=== PATIENT | male | born 1995 | race Two or more races ===

== ENCOUNTER 2019-07-18 17:02 | Emergency (ER) | payer OTHER ==
[2019-07-18 17:11] VITALS: BP 172/88
[2019-07-18] MEDS ORDERED: IBUPROFEN 800 MG TABLET PO STA (17:17)
--- NOTE | 2019-07-18 17:19 | ED Physician Documentation ---
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 He is right-handed. He was carrying a tire yesterday and felt his wrist pop, it has been painful ever since especially on the ulnar side.) Review of Systems Constitutional: denies: Fever, Chills Cardiac: reports: Reviewed and negative Respiratory: reports: Reviewed and negative PD PAST MEDICAL HISTORY - Past Medical History Past Medical History: No - Past Surgical History Past Surgical History: No - Present Medications Home Medications: Ambulatory Orders Medication Instructions Recorded Confirmed Ibuprofen [Motrin] 800 mg PO Q8H PRN #20 tablet 07/18/19 - Allergies Allergies/Adverse Reactions: Allergies Allergy/AdvReac Type Severity Reaction Status Date / Time No Known Drug Allergies Allergy Verified 07/18/19 17:08 - Social History Does the pt smoke?: Yes Smoking Status: Current every day smoker Does the pt drink ETOH?: Yes Does the pt have substance abuse?: No - Immunizations Immunizations are current?: Yes PD ED PE NORMAL - Vitals Vital signs reviewed: Yes - General General: Alert and oriented X 3, No acute distress - Extremities Extremities: Other (Mild TTP ulnar side of R wrist. Pain with i nversion/eversion, less so flex/ect.) - Neuro Neuro: Alert and oriented X 3, Normal speech Results - Vitals Vitals: Vital Signs - 24 hr 07/18/19 17:08 Temperature 36.5 C Heart Rate 96 Respiratory 15 Rate Blood Pressure 172/88 H O2 Saturation 100 Oxygen O2 Source Room air - Rads (name of study) 4 view x-ray of the right wrist Radiology: EMP read contemporaneously (Normal) Departure - Departure Disposition: 01 Home, Self Care Clinical Impression: Right wrist sprain Condition: Good Record reviewed to determine appropriate education?: Yes Instructions: ED Sprain Wrist Prescriptions: Ibuprofen [Motrin] 800 mg PO Q8H PRN #20 tablet PRN Reason: PAIN &/OR FEVER Comments: [place] treatment. Return for new or worsening symptoms. Forms: Activity restrictions
--- NOTE | 2019-07-18 18:34 | XRAY Report ---
Reason: wrist injury Procedure Date: 07/18/2019 Accession Number: [id number] / [id number] Procedure: XR - Wrist 4 View RT CPT Code: Final Report FULL RESULT: EXAM: RIGHT WRIST RADIOGRAPHY EXAM DATE: 07/18/2019 06:24 PM. CLINICAL HISTORY: Wrist injury lifting tire. COMPARISON: None. TECHNIQUE: 4 views. FINDINGS: Bones: Normal. No fractures or bone lesions. Joints: Normal. No subluxations. Soft Tissues: Unremarkable. IMPRESSION: Normal wrist radiography. [facility]
== END 2019-07-18 18:46 | disposition home or self-care (01) ==
LOC: ED 17:02
DX: S63.501A Unspecified sprain of right wrist, initial encounter (principal); X50.1XXA Overexertion from prolonged static or awkward postures, initial encounter; Y93.89 Activity, other specified; F17.200 Nicotine dependence, unspecified, uncomplicated
CPT/HCPCS: 73110; 99283; A9270

== ENCOUNTER 2020-03-21 12:00 | Emergency (ER) | payer OTHER ==
[2020-03-21 12:14] VITALS: BP 154/91
--- NOTE | 2020-03-21 12:44 | ED Physician Documentation ---
History of Present Illness - Stated complaint Stated Complaint: JAW PX - Chief complaint Chief Complaint: Heent - Additonal information Additional information: 24-year-old male presents to the emergency department for evaluation of left lower jaw pain for about 1 week. States the pain is worse in the morning when he wakes up. He typically takes ibuprofen with mild to moderate relief of the pain. He has had no fevers. No trismus. He did go see the [facility] dent[facility] and they told him that the teeth were in good repair and there were no cavities on x-ray. Here on exam he has no tooth tenderness but does have some tenderness with the palpation of the platinum and palladium kettle tender muscles on the left side. Review of Systems Constitutional: reports: Reviewed and negative Eyes: reports: Reviewed and negative Ears: reports: Reviewed and negative Nose: reports: Reviewed and negative Throat: reports: Other (left jaw pain) Cardiac: reports: Reviewed and negative Respiratory: reports: Reviewed and negative GI: reports: Reviewed and negative : reports: Reviewed and negative PD PAST MEDICAL HISTORY - Past Surgical History Past Surgical History: No - Present Medications Home Medications: Ambulatory Orders Medication Instructions Recorded Confirmed Ibuprofen [Motrin] 800 mg PO Q8H PRN #20 tablet 07/18/19 Ibuprofen [Motrin] 600 mg PO Q6H PRN #30 tab 03/21/20 - Allergies Allergies/Adverse Reactions: Allergies Allergy/AdvReac Type Severity Reaction Status Date / Time No Known Drug Allergies Allergy Verified 03/21/20 12:14 - Social History Does the pt smoke?: Yes Smoking Status: Current every day smoker Does the pt drink ETOH?: Yes Does the pt have substance abuse?: No - Immunizations Immunizations are current?: Yes PD ED PE EXPANDED - General General: Alert, No acute distress, Well developed/nourished - HEENT HEENT: Other (tenderness with palpation left jaw massicators. no Click. no gum line swelling). No: Dental TTP, Dental abscess, Oral lesions / sores, Lip laceration, Tongue laceration Results - Vitals Vitals: Vital Signs - 24 hr 03/21/20 12:11 Temperature 36 C L Heart Rate 90 Respiratory 16 Rate Blood Pressure 154/91 H O2 Saturation 100 Oxygen O2 Source Room air PD MEDICAL DECISION MAKING - ED course Complexity details: reviewed results, re-evaluated patient, considered differential, d/w patient ED course: 24-year-old male presents emergency department for evaluation of left jaw pain for about 7 to 10 days. Worse in the morning when he wakes up. On exam his teeth are in good repair. There is no findings to suggest a dental abscess or cellulitis. He has no facial swelling. I suspect that this gentleman clenches or grinds his teeth at night resulting in the pain in the left lower jaw. Will recommend that he try an [id number] bite block to protect the teeth and begin taking ibuprofen 3 times a day. Advise close follow-up with [facility]. Emergent return precautions discussed Departure - Departure Disposition: Home, Self Care Clinical Impression: Jaw pain, Bruxism (teeth grinding) Condition: Stable Record reviewed to determine appropriate education?: Yes Instructions: Bruxism Teeth Grind Prescriptions: Ibuprofen [Motrin] 600 mg PO Q6H PRN #30 tab PRN Reason: Pain Comments: The pain in your jaws related to grinding your teeth at night. This makes the muscles of your face and jaw sore and tense in the morning. Please take the ibuprofen 2-3 times a day as prescribed with food. I do recommend that you buy an [id number] bite block. This should be worn at night. I also recommend close follow-up with your dentist in the future. Return to the emergency department if you develop fevers, have facial swelling or redness.
== END 2020-03-21 12:50 | disposition home or self-care (01) ==
LOC: ED 12:00
DX: G47.63 Sleep related bruxism (principal); F17.200 Nicotine dependence, unspecified, uncomplicated
CPT/HCPCS: 99282; 99283